=== PATIENT | female | born 2005 | race Caucasian/White ===

== ENCOUNTER 2025-03-16 13:18 | Outpatient (OUT) | payer BC, SELFPAY ==
--- OUTSIDE RECORDS SUMMARY | 2016-10-07 05:30 | XMS_ITS | Continuity of Care Document ---
Author Organization [facility] Address [address] [place] [address] Phone Care Team Providers Care Bench Molder Name Role Phone Oswald Hart Unavailable Unavailable Procedures Procedure Date Imm Admin Through 17 Yrs Of Age 017 TDAP VACCINE >7 IM Imm Admin Through 17 Yrs Of Age 017 Meningococcal Conjugate Vaccine 017 OFFICE/OUTPATIENT VISIT, EST HEP A VACC, PED/ADOL, 2 DOSE DTAP VACCINE, < 7 YRS, IM MMR VACCINE, SC POLIOVIRUS, IPV, SC/IM CHICKEN POX VACCINE, SC FLU VACCINE, 3 YRS & >, IM Advance Directives Directive Yes / No Effective Date File Name No Information Encounters Encounter Description Practice Location Reason(s) For Visit Diagnoses Date Provider Providers Copied on Encounter [facility], [address], [place], [id number], [place] tel:[phone] [facility] No Information Jennifer Valdez. [address], [place], [id number], [place]. tel:[phone] OFFICE/OUTPATI ENT VISIT, EST [facility], [address], [place], [id number], [place] tel:[phone] [facility] No Information Jennifer aVldez. [address] [place] [address], [id number], [place]. tel:[phone] Family History Family Member Type Diagnosis Age At Onset No Information Immunizations Vaccine Date Status Comments MCV4 administered Source: New Imm unization Record Tdap administered Source: New Imm unization Record Hep A (ped/adol, 2 dose) refused Mely rce: New Immunization Record HPV (9-valent) refused Source: New I mmunization Record Payers Payer name Insurance type Covered constitution party ID Authoriza tion(s) Medicaid Wrap - [facility] [id number] Medicaid Wrap - [facility] [place] [id number] Social History Type Description Quantity Date Captured Comments Sex Female Smoking Status No Information Chief Complaint And Reason For Visit No Information Reason For Referral Reason For Referral No Information History Of Present Illness Encounter Date Complaint History Of Prese nt Illness No Information Functional Status Date Functional Assessmen t No Information Instructions Date Instruction Additional Infor mation No Information Assessments Type Assessment Date No Information Patient Care Teams Name Effective Dates (start - stop) Status Members No Information
--- OUTSIDE RECORDS SUMMARY | 2025-03-16 13:26 | XMS_ITS | Patient Health Record ---
Author Organization [facility] Address [address] [place] [address] Care Team Providers Care Optician Manager Name Role Phone Nicolas Rizvi Primary Care Provider Reason For Referral No Information Medications Medication SIG (Take, Route, Frequency, Duration) Notes Start Date End Date Status Motrin 40 MG/ML Suspension Orally as needed (prn ) Active Social History Tobacco Use: Social History Observation Description Date Details (start date - stop date) Never Smoker NA - NA Social History GeneralSocial InfoQuestionAnswerNotesTransition of Care:ER/UC/hospital since last office visit?NoSpecialist seen since last office visit?NoSubstance abuse/mental health issues of patient/familyPatient -DeniesFamily Member -Denies Ability to understand healthcare/treatmentPatient:FairFamily Member:Saira Screen:Are you a:never smokerSocial/Support Concerns:Family/Caregiver:NoAlcohol Screening:Did you have a drink containing alcohol in the past year?NoBehaviors affecting healthPoor/Risky Behaviors:Second Hand Smoke-Communication Barrier: Language Barrier?:NoSection Notes: Lives with mother and siblin gs. Smoke exposure when at father's house. Dog, cat, lizards, ferret, and turtle. Smoke/CO2 detectors in home. Plan Of Treatment No Information Insurance Providers Payer Name Payer Address Payer Phone Subscriber Number Group Number Insured Name Patient Relationship to Insured Coverage Start Date Coverage End Date XXXSELF PAY JOSE VERDUGOelf - patient is the insured Medical (General) History Surgical History Surgery Date(Month/Year) Oral surgery 2010
--- OUTSIDE RECORDS SUMMARY | 2025-03-16 13:26 | XMS_ITS | Clinical Summary ---
Author Organization [facility] Address [address] [place] [address] Care Team Providers Care Cloth Printing Inspector Name Role Phone Unallocated, Noms Provider Primary Care Provi koby Social History Tobacco UseTypesPacks/DayYears UsedDateSmoking Tobacco: Never Assessed CommentsUnknownSex and Gender InformationValueDate RecordedSex Assigned at Not on fileLegal IidJjssef30/15/2023 6:45 PM EDTGender IdentityNot on fileSexual OrientationNot on file Last Filed Vital Signs Vital SignReadingTime TakenCommentsBlood Ffhsbuub284/7004 12:00 PM EDT Pulse--Temperature--Respiratory Rate--Oxygen Saturation--Inhaled Oxygen Concentration--Mxmskr81.5 kg (131 lb 1.6 oz)07/12/2021 12:00 PM ECDKiagyq937.3 cm (5' 3.5 )07/12/2021 12:00 PM EDTBody Mass Index22.8607/12/2021 12:00 PM EDT Plan of Treatment DateTypeDepartmentCare Team (Latest Contact Info)Klpitwagfir33/06/2026 1:00 PM EDTProcedure Visit [facility] [address] [place] [address] Mj Esparza DO [address] [place] [address] Health MaintenanceDue DateLast DoneCommentsInfluenza Vaccine (#1)11/15/2024 04/14/2008, 03/07/2005Pneumococcal Vaccine: Pediatrics (0 to 5 Years) and At- Risk Patients (6 to 64 Years)Aged OutNo longer eligible based on patient's age to complete this topic Insurance * Guarantor: Alida Hassan CAccomauri TypeRelation to PatientDate of PhoneBilling AddressPersonal/LipjpeNesk[address] [address] Care Teams Team MemberRelationshipSpecialtyStart DateEnd Date Unallocated, [facility] Provider, [address] [place] [address] PCP - [facility]08/15/22
--- OUTSIDE RECORDS SUMMARY | 2025-03-16 13:26 | XMS_ITS | Patient Health Record ---
Author Organization [facility] Address [address] [place] [address] Care Team Providers Care Vice President Corporate Communications Name Role Phone Larry Alejorell Primary Care Provider Unavailabl e Reason For Referral No Information Medications Medication SIG (Take, Route, Frequency, Duration) Notes Start Date End Date Status CONTROL PILL *Please review for potential replacement for e-prescription and drug interaction check*Active Immunizations Vaccine Route Administration Date Status Comme nts Meningococcal MCV4P (Menactra), IM IM Intramuscular 11/30/2021 Administered Plan Of Treatment No Information Insurance Providers Payer Name Payer Address Payer Phone Subscriber Number Group Number Insured Name Patient Relationship to Insured Coverage Start Date Coverage End Date [facility] [address] [place] [address] [id number] Lorena Shepherd Parent Medical (General) History Medical History History ICD Code denies Surgical History Surgery Date(Month/Year) Dental Baptism age 5
[2025-03-16 14:02] LABS: Glucose Urine UA NEGATIVE (NEGATIVE)
[2025-03-16 14:30] LABS: Alanine Aminotransferase 19 U/L (14-59); Albumin Globulin Ratio 1.3; Albumin Level 4.0 g/dL (3.4-5.0); Alkaline Phosphatase 67 U/L (46-116); Anion Gap 14.1; Aspartate Amino Transferase 17 U/L (15-37); Blood Urea Nitrogen 11.0 mg/dL (7.0-18.0); Calcium 8.6 mg/dL (8.5-10.1); Carbon Dioxide 26.8 mmol/L (21.0-32.0); Chloride 103 mmol/L (98-107); Cholesterol 116 mg/dL (<=200); Estimated GFR (African America >60 (>=60 mL/min/1.73m^2); Estimated GFR (Non-African Ame >60 (>=60 mL/min/1.73m^2); Globulin 3.1 g/dL; Glucose 80 mg/dL (74-106); HDL Cholesterol 60 mg/dL (40-60); Potassium 4.9 mmol/L (3.5-5.1); Sodium 139 mmol/L (136-145); Thyroid Stimulating Hormone 1.446 uIU/mL (0.358-3.740); Total Protein 7.1 g/dL (6.4-8.2); Triglycerides 60 mg/dL (<=150); VLDL CHOLESTEROL 12.0 mg/dL
[2025-03-16 15:18] LABS: Hematocrit 32.2 % (36.0-48.0); Hemoglobin 12.0 g/dL (12.0-16.0); Immature Granulocytes Abs Auto 0.03 10^3/uL (0.00-0.03); Immature Granulocytes Pct Auto 0.5 % (0.0-0.5); Lymphocytes Absolute Auto 2.5 10^3/uL (1.2-3.8); Mean Corpuscular HGB Conc 37.3 g/dL (29.9-35.2); Mean Corpuscular Hemoglobin 40.5 pg (26.7-34.0); Mean Corpuscular Volume 108.8 fL (81.0-99.0); Platelet Count 279 10^3/uL (150-450); Red Blood Count 2.96 10^6/uL (4.20-5.40); White Blood Count 6.2 10^3/uL (4.0-11.0)
== END 2025-03-16 13:19 | disposition home or self-care (01) ==
LOC: LAB 13:24
PROVIDERS: PCP Family Medicine; Visit Provider Family Medicine
DX: Z00.00 Encounter for general adult medical examination without abnormal findings (principal); R17 Unspecified jaundice
CPT/HCPCS: 36415; 80053; 80061; 81003; 82248; 84443; 85025